=== PATIENT | male | born 1990 | race Caucasian/White ===

== ENCOUNTER 2017-02-28 04:17 | Emergency (ER) | payer OTHER, BC ==
[~2017-02-28] VITALS: Ht 182.9 cm; Wt 70.5 kg
[2017-02-28] MEDS ORDERED: KEFLEX500 MG PO (06:26)
[2017-02-28] MEDS ORDERED: NORCO 5/3251 TABLET PO (06:26)
[2017-02-28 07:18] VITALS: BP 124/73
== END 2017-02-28 07:42 | disposition home or self-care (01) ==
LOC: EME 04:17
DX: S62.637A Displaced fracture of distal phalanx of left little finger, initial encounter for closed fracture (principal); S61.217A Laceration without foreign body of left little finger without damage to nail, initial encounter; S67.197A Crushing injury of left little finger, initial encounter; W23.0XXA Caught, crushed, jammed, or pinched between moving objects, initial encounter; Y99.0 Civilian activity done for income or pay; Z23 Encounter for immunization
CPT/HCPCS: 73130; 99281; 99284; J0690